=== PATIENT | male | born 1955 | race Caucasian/White ===

== ENCOUNTER 2019-01-21 14:12 | Inpatient (IN) | payer OTHER, MEDICAID ==
[~2019-01-21] VITALS: Ht 167.6 cm; Wt 68.0 kg
--- NOTE | 2019-01-21 14:15 | NUR ---
Placed in room 08 . Placed on monitor technician, blood pressure machine and pulse oximeter. To gown for exam. Side rails up.
[2019-01-21 14:19] VITALS: BP_SYST 100
--- NOTE | 2019-01-21 14:28 | NUR ---
Pt BIB BLS from [place] for fever and dehydration. Temp was 101.5 at facility, was given tylenol and cooling measures. Temp 99.0 upon arrival. SaO2 97% on 2L NC. Bilateral crackles noted. Palmer catheter in place. Pt denies complaints at this time. at bedside. Will continue to monitor.
--- NOTE | 2019-01-21 14:35 | NUR ---
ER Dr. Le at bedside examining patient.
[2019-01-21] MEDS ORDERED: TAMS-11 PO (14:36)
[2019-01-21] MEDS ORDERED: ONDA4TAB5 PO (14:36)
[2019-01-21] MEDS ORDERED: ACET325T53 PO (14:36)
[2019-01-21] MEDS ORDERED: BENZ0.5T43 PO (14:36)
[2019-01-21] MEDS ORDERED: ALBU2.5V7 INH (14:36)
[2019-01-21] MEDS ORDERED: FINA5TAB3 PO (14:36)
[2019-01-21] MEDS ORDERED: LIP80 PO (14:36)
[2019-01-21] MEDS ORDERED: MELA3TAB64 PO (14:36)
[2019-01-21] MEDS ORDERED: CALC1CAP22 PO (14:36)
[2019-01-21] MEDS ORDERED: CARB1TAB10 PO (14:36)
[2019-01-21] MEDS ORDERED: PEDI0.2517 PO (14:36)
[2019-01-21] MEDS ORDERED: POLY17PO4 PO (14:36)
[2019-01-21] MEDS ORDERED: CLOP300T2 PO (14:36)
--- NOTE | 2019-01-21 14:37 | NUR ---
Medication reconciliation completed with information provided by [facility]. Any prior medication reconciliation on file was reviewed and corrected.
[2019-01-21] MEDS ORDERED: NACL 0.9% 1,000 ML IV ONE ×2 (14:45→15:30)
--- NOTE | 2019-01-21 14:48 | NUR ---
# 18 gauge angiocath placed to R AC. Use of asceptic technique. Opsite placed over site. Blood return noted. Blood for lab drawn from site. Flushed with 10 cc of normal saline. No evidence of infiltration noted. Patient tolerated well.
[2019-01-21 15:22] LABS: HEMOGLOBIN 11.7 g/dL (14.0-18.0); MEAN CORPUSCULAR HEMOGLOBIN 32 pg (27-31); MEAN CORPUSCULAR HGB CONC 34 % (32-36); MEAN CORPUSCULAR VOLUME 96 fL (79.0-98.0); PLATELET COUNT (AUTO) 155 K/uL (130-430); RED BLOOD CELL COUNT(AUTO) 3.63 MIL/uL (4.2-6.2); RED CELL DISTRIBUTION WIDTH 13.7 % (9.0-15.0); WHITE BLOOD COUNT (AUTO) 24.2 K/uL (4.8-10.8)
[2019-01-21] MEDS ORDERED: LEVOFLOXACIN 500 MG/D5W 100 ML IV ONE (15:30)
--- NOTE | 2019-01-21 15:30 | NUR ---
# 16 FR Hou catheter with use of sterile technique. Immediate return of 10 cc light pink urine noted. Bedside drainage bag placed below level of bladder. Urine sample collected and sent to lab. Pt tolerated procedure well. Patient arrived with hou in place, changed due to standard of practice prior to admission. Patient unable to toilet self.
[2019-01-21 15:51] LABS: ALBUMIN 2.8 g/dL (3.4-4.8); CALCIUM 8.3 mg/dL (8.4-11.0); CREATININE 0.79 mg/dL (0.55-1.30); POTASSIUM 3.3 mmol/L (3.5-5.1)
[2019-01-21 15:52] LABS: INR 1.1 (0.80-1.20)
[2019-01-21 16:15] LABS: BAND % (MANUAL) 45 % (0-6); BASOPHILS % (MANUAL) 0 % (0-2); EOSINOPHILS % (MANUAL) 0 % (0-7); LYMPHOCYTES % (MANUAL) 12 % (20-46); METAMYELOCYTES % 2 % (0-0); MONOCYTES % (MANUAL) 9 % (0-11)
--- NOTE | 2019-01-21 16:20 | NUR ---
Pt c/o difficulty breathing. Pt assisted to high arshad's position with mild relief. Dr. eL notified. Breathing tx to be ordered.
--- NOTE | 2019-01-21 16:26 | NUR ---
Respiratory at bedside for breathing tx
[2019-01-21] MEDS ORDERED: IPRATROPIUM/ALBUTEROL SULFATE 3 ML AMPUL.NEB (DUONEB) INH ONE ×2 (16:30→20:00)
[2019-01-21 16:52] LABS: CLARITY/URINE HAZY (CLEAR); COLOR,URINE YELLOW (YELLOW); PH,URINE 7.5 (5.0-8.0); PROTEIN URINE 1+ (NEGATIVE)
[2019-01-21 16:53] LABS: BILIRUBIN,URINE NEGATIVE (NEGATIVE); BLOOD, URINE 3+ (NEGATIVE); GLUCOSE,URINE NEGATIVE (NEGATIVE); KETONES,URINE NEGATIVE (NEGATIVE); LEUKOCYTE ESTERASE ,URINE 3+ (NEGATIVE); NITRITE, URINE NEGATIVE (NEGATIVE); UROBILINOGEN,URINE 0.2 (0.2-1.0)
[2019-01-21 17:00] LABS: BACTERIA,URINE MODERATE /HPF (None Seen); RBC,URINE 20-50 /HPF (0-3); WBC,URINE 50-80 /HPF (0-3)
[2019-01-21] MEDS ORDERED: IPRATROPIUM/ALBUTEROL SULFATE 3 ML AMPUL.NEB (DUONEB) ONE (17:26)
--- NOTE | 2019-01-21 17:26 | NUR ---
ADMISSION NOTE Received patient from ER via gurluba, received report from P[facility] OUT. Patient admitted with diagnosis of SEPSIS,UTI,PNEUMONIA. Patient oriented to hospital routine, call light, toileting and safety-patient verbalized understanding.
[2019-01-21] MEDS ORDERED: ALBUTEROL SULFATE 0.083% 2.5 MG/3 ML VIAL.NEB INH PRN (17:30)
[2019-01-21] MEDS ORDERED: ACETAMINOPHEN 325 MG TABLET PO PRN (17:30)
[2019-01-21] MEDS ORDERED: POLYETHYLENE GLYCOL 3350, 17 GM/ POWD.PACK PO PRN (17:30)
[2019-01-21] MEDS ORDERED: ONDANSETRON 4 MG ODT TAB PO PRN (17:30)
--- NOTE | 2019-01-21 17:30 | NUR ---
ADMISSION NOTE Received patient from ER via gurney. Patient admitted with diagnosis of UTI,PNA and Sepsis. Patient is awake, alert, oriented X 2. Patient oriented to hospital room, call light, toileting, pain management and safety-teach back done. and daughter at bedside Personal belongings checked, no belongings present . Call light within reach.
[2019-01-21] MEDS ORDERED: POTASSIUM CHLORIDE 30 MEQ in NS 250 ML IV ONE (17:45)
[2019-01-21 17:52] VITALS: BP_SYST 125
[2019-01-21 18:03] VITALS: BP_SYST 101
--- NOTE | 2019-01-21 18:04 | NUR ---
SEPSIS REASSESSMENT: 2ND LACTIC ACID 1.6, PER REPORT PT GIVEN 2 LI OF NS AND ABX IN ER.
[2019-01-21] MEDS ORDERED: MILK OF MAGNESIA 30 ML UDC PO PRN (18:45)
[2019-01-21] MEDS ORDERED: ONDANSETRON HCL 4 MG/2 ML VIAL IVP PRN (18:45)
[2019-01-21] MEDS: KCL 20 mEq in NS 1000 mL 1,000 ML IV SCH (18:59)
--- NOTE | 2019-01-21 19:26 | NUR ---
Closing Notes Full SBAR report given to RN next shift, patient remain to be alert, awake and verbally responsive. Denies any pain or discomfort at this time. On 02 at 2lpm via [place]. Voddler infusig well. Call light within the reach.
[2019-01-21] MEDS: CARBIDOPA/LEVODOPA 25/100 MG TABLET PO SCH (19:42)
[2019-01-21 20:00] VITALS: BP_SYST 106
--- NOTE | 2019-01-21 20:28 | NUR ---
CONSULTATION PAGED/CALLED Reason for consultation: Sepsis UTI, indwelling hou Was consult called? Yes Person who was notified: Lisa Consulting Physician: Dr. Man Youth Associate Phone #: Ordering Physician: Dr. Grove
[2019-01-21] MEDS: BENZTROPINE MESYLATE 1 MG TABLET PO SCH (21:24)
[2019-01-21] MEDS ORDERED: ZOLPIDEM TARTRATE 5 MG TABLET PO PRN (21:30)
--- NOTE | 2019-01-21 22:42 | NUR ---
CONSULTATION PAGED/CALLED Reason for consultation: metastatic abdominal sarcoma Was consult called? Yes Person who was notified: Lisa Consulting Physician: Dr. Lerma Social Media Designer Phone #: Ordering Physician: Dr. Grove
[2019-01-22] MEDS: CARBIDOPA/LEVODOPA 25/100 MG TABLET PO SCH ×4 (00:35→17:25)
[2019-01-22 00:37] VITALS: BP_SYST 104
[2019-01-22] MEDS: ALBUTEROL SULFATE 0.083% 2.5 MG/3 ML VIAL.NEB INH SCH ×4 (01:00→20:02)
[2019-01-22] MEDS: KCL 20 mEq in NS 1000 mL 1,000 ML IV SCH ×2 (05:36→17:25)
[2019-01-22 06:26] LABS: HEMATOCRIT 32.7 % (36-54); MEAN CORPUSCULAR HEMOGLOBIN 33 pg (27-31); MEAN CORPUSCULAR HGB CONC 34 % (32-36); MEAN CORPUSCULAR VOLUME 97 fL (79.0-98.0); PLATELET COUNT (AUTO) 142 K/uL (130-430); RED BLOOD CELL COUNT(AUTO) 3.37 MIL/uL (4.2-6.2); RED CELL DISTRIBUTION WIDTH 13.9 % (9.0-15.0); WHITE BLOOD COUNT (AUTO) 29.6 K/uL (4.8-10.8)
--- NOTE | 2019-01-22 06:34 | NUR ---
Closing note: Patient is asleep. No distress. 2L NC in place. IV fluids infusing well. All needs met. Safety, fall precautions observed. Hourly rounding performed throughout shift. Will endorse care to dayshift RN.
[2019-01-22 06:50] LABS: ALANINE AMINOTRANSFERASE 10 U/L (12-78); ALBUMIN 2.5 g/dL (3.4-4.8); ASPARTATE AMINOTRANSFERASE 30 U/L (10-37); CALCIUM 8.6 mg/dL (8.4-11.0); CHLORIDE 108 mmol/L (98-107); CREATININE 0.73 mg/dL (0.55-1.30); GLUCOSE 98 mg/dL (70-99); POTASSIUM 3.9 mmol/L (3.5-5.1); SODIUM SERUM 139 mmol/L (136-145); THYROID STIMULATING HORMONE 1.37 uIu/mL (0.34-4.82); TOTAL BILIRUBIN 0.9 mg/dL (0.0-1.0); UREA NITROGEN, BLOOD 6 mg/dL (8-21)
[2019-01-22 06:53] LABS: ANION GAP < 3 (5-15); GFR AFRICAN AMERICAN 140 mL/min (>90)
[2019-01-22 08:00] VITALS: BP_SYST 112
--- NOTE | 2019-01-22 08:00 | NUR ---
Initial Note-Pt awake, AOX1. Pt is receiving breathing treatment, tolerating well saturating at 96%. No acute distress noted. Pt incontinent of bowel, changed and repositioned. IVF infusing well. Palmer patent, urine is yellow and clear. Safety precautions in place, bed alarm on and in lowest position. Call light within reach and encourage pt to use for assistance.
[2019-01-22] MEDS: PANTOPRAZOLE SODIUM 40 MG TAB PO SCH (08:28)
[2019-01-22] MEDS: TAMSULOSIN HCL 0.4 MG CAP PO SCH (08:28)
[2019-01-22] MEDS: FINASTERIDE 5 MG TABLET (PROSCAR) PO SCH (08:28)
[2019-01-22] MEDS: BENZTROPINE MESYLATE 1 MG TABLET PO SCH ×3 (08:29→21:00)
[2019-01-22] MEDS: CLOPIDOGREL BISULFATE 75 MG TABLET PO SCH (08:29)
[2019-01-22 09:39] LABS: BAND % (MANUAL) 2 % (0-6); BASOPHILS % (MANUAL) 0 % (0-2); EOSINOPHILS % (MANUAL) 0 % (0-7); LYMPHOCYTES % (MANUAL) 16 % (20-46); MONOCYTES % (MANUAL) 6 % (0-11)
--- NOTE | 2019-01-22 10:09 | NUR ---
Nutrition Update Abhi Scale 14 noted. Pt admitted for possible sepsis, UTI, pneumonia. Diet: 2 gm Na, mechanical soft + 2 gm Na (2 active, separate diet orders) BMI: 24.2 kg/m2 RD to follow per nutrition care standards.
[2019-01-22] MEDS ORDERED: CEFEPIME 1 GM in D5W 50 ML IV ONE (11:15)
--- NOTE | 2019-01-22 11:22 | NUR ---
Notes-Pt temp 100.8. Applied ice packs and administered PRN tylenol. will continue to monitor.
[2019-01-22 12:10] VITALS: BP_SYST 99
--- NOTE | 2019-01-22 12:30 | NUR ---
Family at bedside and feeding patient.
[2019-01-22] MEDS ORDERED: LEVOFLOXACIN 500 MG/D5W 100 ML IV SCH (15:00)
--- NOTE | 2019-01-22 15:01 | NUR ---
Seen by Speech therapist at bedside.
--- NOTE | 2019-01-22 15:12 | NUR ---
S.T. SWALLOW EVAL SWALLOW EVAL COMPLETED. PT PRESENTS W/ MOD-SEV ORAL AND SEV PHARYNGEAL DYSPHAGIA W/ IMPAIRED AND DELAYED BOLUS TRANSFER, DELAYED SWALLOW, AND SEV COUGHING ON ALL P.O. TRIALS. PT IS AT HIGH RISK FOR ASPIRATION. REC: NPO. VFSS. AWAITING ORDER. NURSE KATIE DEE NOTIFIED. G8996 CM G8997 CM G8998 CM NOMS LEVEL 2
--- NOTE | 2019-01-22 15:24 | NUR ---
S.T. FAMILY CONSULT SPOKE W/ PT'S AT BEDSIDE. EXPLAINED TO HER SWALLOW EVAL RESULTS AND RECOMMENDATIONS/RATIONALE FOR NPO AND VFSS. DECLINED RECOMMENDATIONS. NURSE KATIE DEE NOTIFIED AND WILL LET DR. LYNN KNOW.
--- NOTE | 2019-01-22 15:24 | NUR ---
Notes-Speech pathologist at bedside. refused speech pathologist recommendations. Addendum: 01/22/19 at 1619 by Rebecca uW RN speech therapist.
[2019-01-22] MEDS ORDERED: NS 250 ML IV ONE (16:15)
--- NOTE | 2019-01-22 16:19 | NUR ---
Notes- Pt in bed awake awake, at bedside and talking to Dr. Grove, B/P is 83/55, MD ordered 250 NS bolus. Made aware also that is refusing video swallow.
[2019-01-22 16:50] VITALS: BP_SYST 83
[2019-01-22 17:28] VITALS: BP_SYST 123
--- NOTE | 2019-01-22 17:32 | NUR ---
physical therapy at bedside doing eval. NS bolus done. Blood pressure is in 123/57.
--- NOTE | 2019-01-22 18:15 | NUR ---
Closing Note-Pt asleep in bed. Pt is on 2L nasal cannula, tolerating well. Breathing is even and un-labored. No acute distress noted. IVF infusing well on right ac. Safety precaution in place, bed alarm on, call light within reach and encourage pt to use throughout shift. All needs met throughout shift, will continue to monitor until pt care is endorsed to business education professor nurse.
--- NOTE | 2019-01-22 18:31 | NUR ---
Notes-Dr. Dewey at bedside. No new orders at this time.
--- NOTE | 2019-01-22 19:52 | NUR ---
Initial note: Received report from moreno RN. Patient is laying in bed awake. Alert and oriented to name only. Even and unlabored breathing on 2L NC. IV fluids infusing well to right AC IV site, no infiltration. Palmer catheter draining clear yellow urine to gravity, no clots or sediment noted. Call light is with patient. Bed is locked in lowest position, side rails raised, bed alarm on, room is close to nurses' station. Head of bed is elevated at 45 degrees. Will continue with plan of care.
[2019-01-22 20:00] VITALS: BP_SYST 99
[2019-01-22] MEDS: CEFEPIME 1 GM in D5W 50 ML IV SCH (20:06)
[2019-01-22] MEDS: metroNIDAZOLE 500 mg/NS 100 ML IV SCH (20:50)
--- NOTE | 2019-01-22 22:40 | NUR ---
Rounds: Patient is laying in bed, head of bed elevated. No distress on 2L NC. IV fluids infusing as ordered by MD. Call light with patient. Will continue monitoring.
[2019-01-23 00:43] VITALS: BP_SYST 100
[2019-01-23] MEDS: ALBUTEROL SULFATE 0.083% 2.5 MG/3 ML VIAL.NEB INH SCH ×4 (00:51→19:59)
--- NOTE | 2019-01-23 00:53 | NUR ---
Rounds: Patient is sleeping. No distress noted. Tolerating 2L NC, respirations are even and unlabored. IV site is patent and benign. Call light with patient. Will continue to monitor.
[2019-01-23] MEDS: KCL 20 mEq in NS 1000 mL 1,000 ML IV SCH ×2 (01:49→14:13)
--- NOTE | 2019-01-23 02:11 | NUR ---
Rounds: Patient is resting in bed, no distress. Tolerating 2L NC. IV fluids infusing well. Call light is with patient. Safety, fall precautions in place. Will continue monitoring.
--- NOTE | 2019-01-23 04:51 | NUR ---
Rounds: Patient is laying comfortably in bed asleep, no distress. Even, unlabored breathing on 2L NC. IV fluids infusing as ordered. Dany light with patient. Will continue to monitor.
[2019-01-23] MEDS: CARBIDOPA/LEVODOPA 25/100 MG TABLET PO SCH ×5 (06:00→23:36)
[2019-01-23 06:11] LABS: HEMATOCRIT 32.1 % (36-54); HEMOGLOBIN 10.8 g/dL (14.0-18.0); MEAN CORPUSCULAR HEMOGLOBIN 32 pg (27-31); MEAN CORPUSCULAR HGB CONC 34 % (32-36); MEAN CORPUSCULAR VOLUME 97 fL (79.0-98.0); PLATELET COUNT (AUTO) 138 K/uL (130-430); RED BLOOD CELL COUNT(AUTO) 3.32 MIL/uL (4.2-6.2); RED CELL DISTRIBUTION WIDTH 13.8 % (9.0-15.0); WHITE BLOOD COUNT (AUTO) 23.9 K/uL (4.8-10.8)
[2019-01-23 06:13] LABS: CALCIUM 8.5 mg/dL (8.4-11.0); CHLORIDE 109 mmol/L (98-107); CREATININE 0.72 mg/dL (0.55-1.30); GLUCOSE 117 mg/dL (70-99); POTASSIUM 3.7 mmol/L (3.5-5.1); SODIUM SERUM 141 mmol/L (136-145); UREA NITROGEN, BLOOD 6 mg/dL (8-21)
[2019-01-23 06:18] LABS: ANION GAP < 3 (5-15); GFR AFRICAN AMERICAN 142 mL/min (>90)
--- NOTE | 2019-01-23 06:52 | NUR ---
Closing note: Patient is resting in bed, tolerating 2L NC, showing no acute distress. IV fluids infusing well to right AC IV site. All needs met. Safety and fall precautions observed. Hourly rounding performed throughout shift. Will endorse care to dayshift RN.
[2019-01-23 07:33] LABS: BAND % (MANUAL) 8 % (0-6); BASOPHILS % (MANUAL) 0 % (0-2); EOSINOPHILS % (MANUAL) 0 % (0-7); LYMPHOCYTES % (MANUAL) 7 % (20-46); MONOCYTES % (MANUAL) 5 % (0-11)
--- NOTE | 2019-01-23 07:50 | NUR ---
AM ASSESSMENT. PT ALERT, FREQUENT COUGHING HEARD, TURNED PT TO SEMI SITTING POSITION, ON O2 VIA NASAL CANNULA, VITAL SIGNS STABLE, IVF INFUSING NS WITH 20 MEQ KCL AT 100 ML PER HR, PRINCE CATHETER DRAINING GOOD OUTPUT.
[2019-01-23 08:00] VITALS: BP_SYST 112
[2019-01-23] MEDS: FINASTERIDE 5 MG TABLET (PROSCAR) PO SCH (09:00)
[2019-01-23] MEDS: TAMSULOSIN HCL 0.4 MG CAP PO SCH (09:00)
[2019-01-23] MEDS: BENZTROPINE MESYLATE 1 MG TABLET PO SCH ×3 (09:00→21:00)
[2019-01-23] MEDS: PANTOPRAZOLE SODIUM 40 MG TAB PO SCH (09:00)
[2019-01-23] MEDS: CLOPIDOGREL BISULFATE 75 MG TABLET PO SCH (09:00)
[2019-01-23] MEDS: CEFEPIME 1 GM in D5W 50 ML IV SCH ×2 (09:01→20:48)
[2019-01-23] MEDS: metroNIDAZOLE 500 mg/NS 100 ML IV SCH ×2 (10:07→21:46)
[2019-01-23 12:00] VITALS: BP_SYST 119
--- NOTE | 2019-01-23 14:18 | NUR ---
Dc Planning: s/w patient and his spouse/Nikki at bedside for dcp to snf vs. home with HH . They are agreeable either way. The patient stays at home with Nikki prior going to [facility] in November, then the pat was d/c to [facility] for about 6 weeks. They would like a new rehab at [facility] where is closed to family home or going back to [facility] if unable to transfer to [facility]. >> CM updated Jodi at [facility] about family snf request to #1 [facility] and #2 [facility]. Once there is an accepting snf, or discharging pt on weekend, place call [facility], off hour cm /UR dept # [phone] opt 1 for snf and ambulance auth.
--- NOTE | 2019-01-23 15:06 | NUR ---
CLIFTON, SPEECH THERAPIST WAS INFORMED THAT PT'S FAMILY WANTS A VIDEO SWALLOWING EVAL . CLIFTON ASKED ME TO TRANSFER CALL TO RADIOLOGY.
--- NOTE | 2019-01-23 15:34 | NUR ---
Dietitian Recommendations * Consider advance diet if/when medically appropriate * Consider ST VFSS results and recommendation * Consider ONS if/when medically appropriate LP, RD Please refer to Nutrition Assessment for details. Addendum: 01/23/19 at [address] Amended: Links added.
--- NOTE | 2019-01-23 15:57 | NUR ---
Apurva G[employer] STARTER AND RANGER WAS NOTIFIED TODAY AT 1503 RE: VFSS ORDER. CALLED RADIOLOGY - RADIOLOGIST IS GONE FOR THE DAY. VFSS CAN BE PERFORMED ON SATURDAY (LABOR DAY). [facility] [employer] [employer]ER WILL SCHEDULE ON SATURDAY MORNING RE: EXACT TIME. NURSES CHECO AND DR. LYNN UPDATED WITH CURRENT STATUS.
--- NOTE | 2019-01-23 16:00 | NUR ---
FAMILY. PT'S AT BEDSIDE. INFORMED THAT VIDEO SWALLOW WILL BE DONE ON SATURDAY. SHE ASKED IF HE CAN HAVE SOMETHING TO EAT FOR NOW, TO TRY SOME ENSURE, STATED "I FED HIM YESTERDAY". EDUCATED ON RISK FOR ASPIRATION.
[2019-01-23 17:07] VITALS: BP_SYST 115
--- NOTE | 2019-01-23 18:19 | NUR ---
PHYSICAL THERAPY CO-SIGN The Physical Therapy Progress Notes documented by Multiple Spindle Router Operator have been reviewed. Reviewed/Co-Signed by: Cheyenne Bynum PT Documentation Done by:MARIELOS [place] PTA 01/23/19 Hgb=10.8 Addendum: 01/23/19 at 1820 by Cheyenne Bynum PT Amended: Links added.
[2019-01-23 20:10] VITALS: BP_SYST 113
--- NOTE | 2019-01-23 20:10 | NUR ---
INITIAL NOTES: PATIENT IN BED AWAKE ,ORIENTED X3. FAMILY AT BEDSIDE. ON O2 2 LITERS PER N/C. IVF INFUSING AT 100ML/HR. DENIES PAIN NOR SOB NOR CHEST PAIN. HAVING MOIST COUGH OCCASIONALLY, PRINCE DRAINING CLEAR MANOLO URINE. SINUS RHYTHM ON TELEMONITOR. WILL MONITOR CLOSELY.
--- NOTE | 2019-01-23 21:00 | NUR ---
NPO .NO MEDS GIVEN TO PREVENT ASPIRATION.
--- NOTE | 2019-01-23 23:20 | NUR ---
RESTING WELL IN BED .NO ACUTE DISTRESS. CALL LIGHT WITHIN REACH. BED IN LOW POSITION. PRINCE DRAING WELL.
--- NOTE | 2019-01-24 01:08 | NUR ---
MOANING. NO ANSWER WHEN TALKED TO HIM. NO DISTRESS.
[2019-01-24 01:18] VITALS: BP_SYST 105
[2019-01-24] MEDS: KCL 20 mEq in NS 1000 mL 1,000 ML IV SCH ×2 (01:24→15:10)
[2019-01-24] MEDS: ALBUTEROL SULFATE 0.083% 2.5 MG/3 ML VIAL.NEB INH SCH ×4 (01:50→19:25)
--- NOTE | 2019-01-24 03:00 | NUR ---
BREATHING PATTERN REGULAR. NO DISTRESS.
--- NOTE | 2019-01-24 05:10 | NUR ---
HAS SMALL SOFT STOOL. PHIL CARE DONE. NO DISTRESS.
[2019-01-24 06:43] LABS: CALCIUM 8.6 mg/dL (8.4-11.0); CHLORIDE 104 mmol/L (98-107); CREATININE 0.66 mg/dL (0.55-1.30); GLUCOSE 100 mg/dL (70-99); POTASSIUM 3.8 mmol/L (3.5-5.1); SODIUM SERUM 138 mmol/L (136-145); UREA NITROGEN, BLOOD 6 mg/dL (8-21)
[2019-01-24 07:10] LABS: BASOPHILS % (AUTO) 0.3 % (0.0-2.0); EOSINOPHILS % (AUTO) 0.1 % (0.0-4.0); HEMATOCRIT 34.1 % (36-54); HEMOGLOBIN 11.5 g/dL (14.0-18.0); LYMPHOCYTES # (AUTO) 1.4 K/uL (1.0-5.5); LYMPHOCYTES % (AUTO) 11.8 % (20.5-51.5); MEAN CORPUSCULAR HEMOGLOBIN 33 pg (27-31); MEAN CORPUSCULAR HGB CONC 34 % (32-36); MEAN CORPUSCULAR VOLUME 98 fL (79.0-98.0); MONOCYTES # (AUTO) 0.9 K/uL (0.0-1.0); MONOCYTES % (AUTO) 7.3 % (1.7-9.3); NEUTROPHILS # (AUTO) 9.5 K/uL (1.8-7.7); NEUTROPHILS % (AUTO) 80.5 % (40.0-70.0); PLATELET COUNT (AUTO) 141 K/uL (130-430); RED BLOOD CELL COUNT(AUTO) 3.49 MIL/uL (4.2-6.2); WHITE BLOOD COUNT (AUTO) 11.8 K/uL (4.8-10.8)
[2019-01-24 07:22] LABS: ANION GAP < 3 (5-15); GFR AFRICAN AMERICAN 157 mL/min (>90)
[2019-01-24 08:00] VITALS: BP_SYST 110
[2019-01-24] MEDS: PANTOPRAZOLE SODIUM 40 MG TAB PO SCH (09:00)
[2019-01-24] MEDS: CLOPIDOGREL BISULFATE 75 MG TABLET PO SCH ×2 (09:00→10:09)
[2019-01-24] MEDS: TAMSULOSIN HCL 0.4 MG CAP PO SCH ×2 (09:00→10:09)
[2019-01-24] MEDS: BENZTROPINE MESYLATE 1 MG TABLET PO SCH ×4 (09:00→21:00)
[2019-01-24] MEDS: CEFEPIME 1 GM in D5W 50 ML IV SCH ×2 (10:08→20:54)
[2019-01-24] MEDS: metroNIDAZOLE 500 mg/NS 100 ML IV SCH ×2 (10:08→21:36)
[2019-01-24] MEDS: FINASTERIDE 5 MG TABLET (PROSCAR) PO SCH (10:09)
[2019-01-24] MEDS: CARBIDOPA/LEVODOPA 25/100 MG TABLET PO SCH ×4 (12:00→23:37)
[2019-01-24 12:32] VITALS: BP_SYST 120
[2019-01-24 16:25] VITALS: BP_SYST 105
[2019-01-24 17:49] VITALS: BP_SYST 105
[2019-01-24] MEDS: KCL 20 mEq in D5NS 1000 mL 1,000 ML IV SCH (18:38)
--- NOTE | 2019-01-24 19:45 | NUR ---
initial notes: pt is awake,alert, oriented x 2. in bed. watching tv. not distress, no sob. no sign of pain stable. pt has ongoing ivf to his right ac gauge 18 infusing well with out sign of infiltration. hou catheter draining to clear yellow urine. no skin breakdown, incontinent of bm. discuss to pt plan of care, medication, reorient to room and call light. pt show sign of understanding. needs attended call light in reach. low bed position. side rails up. will continue to monitor.
--- NOTE | 2019-01-24 20:00 | NUR ---
initial notes: pt is awake,alert, oriented x 4. in bed. not distress, no sob. no complain of pain pt has 18 gauge iv lock to right forearm-patent and intact with ongoing ivf infusing well. pt has multiple wounds. pt has pitting edema to right foot. hou catheter draining to clear yellow urine. discuss to pt plan of care, medication, reorient to room and call light, pt verbalized understanding. needs attended call light in reach. low bed position. side rails up. will follow-up. Addendum: 01/25/19 at 0037 by Jorge Quick RN DISREGARD. WRONG ENTRY
[2019-01-24 20:43] VITALS: BP_SYST 109
--- NOTE | 2019-01-24 22:00 | NUR ---
pt is still awake, watching tv. no sob. not distress. no sign of pain. stable. will continue to monitor.
--- NOTE | 2019-01-25 | NUR ---
sleeping. no distress. no pain. stable. reposition for comfort. side rails up x3 . low bed position. will monitor.
[2019-01-25] MEDS: ALBUTEROL SULFATE 0.083% 2.5 MG/3 ML VIAL.NEB INH SCH ×4 (00:25→19:52)
[2019-01-25 00:52] VITALS: BP_SYST 101
--- NOTE | 2019-01-25 01:57 | NUR ---
sleeping, no sob. no distress. stable. ivf infusing well. will monitor.
[2019-01-25] MEDS: KCL 20 mEq in D5NS 1000 mL 1,000 ML IV SCH ×3 (03:07→22:59)
--- NOTE | 2019-01-25 04:00 | NUR ---
pt is wakes up. and ask for socks. stable. no pain. needs attended. safety. call light in reach. will follow-up.
[2019-01-25] MEDS: CARBIDOPA/LEVODOPA 25/100 MG TABLET PO SCH ×3 (05:52→16:57)
--- NOTE | 2019-01-25 06:01 | NUR ---
sleeping, comfortable. sob. no distress. stable. ivf infusing well.needs attended. will monitor.
--- NOTE | 2019-01-25 07:14 | NUR ---
closing: pt is awake, alert. watching tv. no pain. not distress. stable. ivf infusing well. hou drain by gravity. needs attended the whole shift. call light in reach. bed side report given to am rn.
[2019-01-25 07:59] VITALS: BP_SYST 108
[2019-01-25] MEDS: TAMSULOSIN HCL 0.4 MG CAP PO SCH (09:00)
[2019-01-25] MEDS: FINASTERIDE 5 MG TABLET (PROSCAR) PO SCH (09:00)
[2019-01-25] MEDS: CLOPIDOGREL BISULFATE 75 MG TABLET PO SCH (09:00)
[2019-01-25] MEDS: PANTOPRAZOLE SODIUM 40 MG TAB PO SCH (09:00)
[2019-01-25] MEDS: BENZTROPINE MESYLATE 1 MG TABLET PO SCH ×3 (09:00→21:00)
[2019-01-25] MEDS: CEFEPIME 1 GM in D5W 50 ML IV SCH ×2 (09:02→21:33)
[2019-01-25] MEDS: metroNIDAZOLE 500 mg/NS 100 ML IV SCH ×2 (09:03→21:34)
--- NOTE | 2019-01-25 12:33 | NUR ---
Nutrition F/U RD reviewed pt's current EMR including diet Hx, physician notes, nursing notes, pertinent labs/meds/procedures, care trends and care activity. Current Diet Order: NPO x 2 days Subjective information: Pt seen in bed at time of RD visit earlier today. IV infusing. Per RN, pt is still awaiting VFSS. Per ST notes (01/23), VFSS will be done 01/26/19. Current PO intake: N/A on NPO Estimated Energy Expenditure (kcals/day) 0036-6137 kcal/day (30-35 kcal/kg CBW for sepsis, CA) Estimated Protein Required (g/day) 102-136 gm/day (1.5-2 gm/kg CBw for sepsis, CA) Estimated Fluid Required (l/day) 2-2.4 L/day (1 ml/kcal/day for maintenance) Problem/Etiology/Signs/Symptoms Increased nutritional needs related to metabolic demands as evidenced by estimated nutritional requirements for sepsis and CA, as well as elevated WBC lab value. *ongoing Inadequate PO intake r/t pending medical procedure AEB current NPO status and need for swallow re-evaluation. *new Expected Outcomes/Goals - Monitor advancement of diet, appetite, and PO intakes w/ goal of pt meeting at least 50% of estimated nutritional needs, labs trending WNL, normal GI function, and skin integrity/wt maintenance Dietitian Recommendations * Consider advance diet if/when medically appropriate within 24 hrs. * Consider ST VFSS results and recommendation * Consider an alternate route of nutrition support if PO intake is not warranted in 24 to 48 hrs. Follow Up High Risk: F/U in 2-3days
--- NOTE | 2019-01-25 12:40 | NUR ---
Dietitian Recommendations * Consider advance diet if/when medically appropriate within 24 hrs. * Consider ST VFSS results and recommendation * Consider an alternate route of nutrition support if PO intake is not warranted in 24 to 48 hrs. Please see nutrition F/U note for details. TAYLOR, RD
[2019-01-25 16:00] VITALS: BP_SYST 102
[2019-01-25 19:00] VITALS: BP_SYST 106
--- NOTE | 2019-01-25 19:15 | NUR ---
change of shift.pt.presents quiescent affect;calm.viewing tv programming.pt.presents mute speech.pt.presents.lt.sided weakness. general status stable.respiratory status stable@room air.iv access;intact;patent:iv fluids infusing.call light/telephone placed w/in the reach of the pt.rt.side;hand. Addendum: 01/26/19 at 0155 by Damián Piper RN pt.presents npo;diet status.video-swallow study in am;01/26/19. Addendum: 01/26/19 at 0200 by Damián Piper RN hou catheter present.
[2019-01-25 20:00] VITALS: BP_SYST 106
--- NOTE | 2019-01-25 20:00 | NUR ---
pt.assessed.v/s assessed;values w/in normal limits.per flacc;pain mgx;pt absent facial grimaces/body posturing.iv access ;intact;patent;iv fluids;infusing.pt.assessed for cleanliness.pt.repositioned.general status stable.respiratory status stable@room air ;02%=96%.call light/telephone placed w/in reach of the pt.;rt.side;hand. Addendum: 01/26/19 at 0205 by Damián Piper RN hou catheter assessed;intact;patent;urine content present.
--- NOTE | 2019-01-25 21:00 | NUR ---
2100pmedications;administered.maxipime/flagyl;abx;ivpb.pt.preset npo status;video-swallow in am;01/26/19.
--- NOTE | 2019-01-25 22:00 | NUR ---
pt.assessed.pt.presents quiescent affect;calm,viewing tv programming.per flacc;pain mgx;pt.absent facial grimaces,body posturing.iv access assessed;intact;patent;iv fluids infusing.hou catheter assessed;intact;patent;urine content present.pt.assessed for cleanliness.pt.repositioned.call light/telephone placed w/in the reach of the pt;rt.side;hand.
[2019-01-25 23:33] VITALS: BP_SYST 96
--- NOTE | 2019-01-26 | NUR ---
pt.assessed.v/s assessed.values w/in normal limits.per flacc;pain mgx;pt absent facial grimaces/body posturing.pt.assessed for cleanliness.pt.repositioned.iv acces ;intact;patent;iv fluids infusing.general status stable.respiratory status stable:o2-say%=96%. sarita light/telephone placed w/in the reach of the pt.rt.side;hand. Addendum: 01/26/19 at 0204 by Damián Piper RN hou catheter assessed;intact;patent;urine content present.
[2019-01-26] MEDS: ALBUTEROL SULFATE 0.083% 2.5 MG/3 ML VIAL.NEB INH SCH ×4 (00:51→19:27)
--- NOTE | 2019-01-26 02:00 | NUR ---
pt.assessed.pt.presents quiescent affect;calm,somnolent.iv access;intact;patent;iv fluids infusing.hou catheter intact;patent;urine content present.pt.assessed for cleanliness.pt.repositioned.general status stable.respiratory status stable.sarita light/telephone placed w/in the reach of the pt.rt.side;hand.
--- NOTE | 2019-01-26 04:00 | NUR ---
pt.assessed.pt.presents quiescent affect;calm,somnolent.per flacc;pain mgx;pt.absent facial grimaces,body posturing.pt.assessed for cleanliness.pt.repositioned general status stale.respiratory status stable;unlabored.call light/telephone placed w/in the reach of the pt.rt.side;hand.
[2019-01-26] MEDS: CARBIDOPA/LEVODOPA 25/100 MG TABLET PO SCH ×4 (05:01→17:51)
[2019-01-26] MEDS: KCL 20 mEq in D5NS 1000 mL 1,000 ML IV SCH ×3 (05:02→21:42)
--- NOTE | 2019-01-26 06:21 | NUR ---
pt.assessed.pt.presents quiescent affect;clam,somnolent.i have assessed the iv access;intact;patent iv fluids infusing. i have assessed the hou catheter;intact;patent;urine content present.pt.assessed for cleanliness.pt.repositioned. general status stable respiratory status stable;unlabored.call light/telephone placed w/in reach of the pt.rt.side;hand.
--- NOTE | 2019-01-26 07:30 | NUR ---
Opening Notes Patient received lying comfortably in his bed with respiration even and unlabored. Remain to be alert, awake and limited verbal response. No moaning or grimacing noted. IVF remain to be intact and running well. Patient continued on NPO. Call light within the reach. Will continue to monitor.
[2019-01-26] MEDS: CEFEPIME 1 GM in D5W 50 ML IV SCH ×2 (08:18→21:41)
--- NOTE | 2019-01-26 08:20 | NUR ---
Spoke with Speech Therapist Angi, regarding orders for video swallow today, per her request changed the order to be under Radiology as well, procedure to be at 0930 today 01/26/19.
[2019-01-26 08:30] VITALS: BP_SYST 115
[2019-01-26] MEDS: BENZTROPINE MESYLATE 1 MG TABLET PO SCH ×3 (09:00→21:42)
[2019-01-26] MEDS: FINASTERIDE 5 MG TABLET (PROSCAR) PO SCH (09:00)
[2019-01-26] MEDS: PANTOPRAZOLE SODIUM 40 MG TAB PO SCH (09:00)
[2019-01-26] MEDS: TAMSULOSIN HCL 0.4 MG CAP PO SCH (09:00)
[2019-01-26] MEDS: CLOPIDOGREL BISULFATE 75 MG TABLET PO SCH (09:00)
[2019-01-26] MEDS ORDERED: BARIUM SULFATE 135 ML SUSP.RECON (E-Z-HD) PO ONE (09:33)
--- NOTE | 2019-01-26 09:33 | NUR ---
Hygiene care patient calling at this time, had a BM, cleaned and repositioned patient, he tolerated well, no other needs at this time, continuing to monitor, bed in lowest position, three side rails up, bed alarm on, call light within reach, fall and aspiration precautions in place.
--- NOTE | 2019-01-26 10:09 | NUR ---
Video Swallow at this time, patient is not in any distress, continuing to monitor.
[2019-01-26] MEDS: metroNIDAZOLE 500 mg/NS 100 ML IV SCH ×2 (10:22→21:42)
--- NOTE | 2019-01-26 11:24 | NUR ---
S.T. VIDEO SWALLOW STUDY VFSS COMPLETED. PT PRESENTS W/ MOD-SEV ORAL AND MOD PHARYNGEAL DYSPHAGIA CHARACTERIZED BY DELAYED INITIATION AND PROPULSION OF BOLUS TRANSFER, SEV INCREASED ORAL TRANSIT TIME, POSTERIOR BOLUS LEAKAGE, AND DELAYED SWALLOW. ML PENETRATION NOTED ON CONTINUOUS CUP SIPS OF THIN LIQUIDS. NO ASPIRATION. REC: PUREE DIET. THIN LIQUIDS OK. SLOW RATE OF FEEDING. NO STRAW. NURSES IMAN AND KWASI NOTIFIED. G8996 CK G8997 CK G8998 CK NOMS LEVEL 4
--- NOTE | 2019-01-26 11:55 | NUR ---
Spoke with SNF Spoke with Muriel from [facility], she was calling for updates, updates provided, Muriel stated to call back if patient is being discharged today, will follow up as needed.
--- NOTE | 2019-01-26 12:05 | NUR ---
Paged Dr. Grove Paged Dr. Grove to notify regarding video swallow test result. Awaiting for call back.
--- NOTE | 2019-01-26 12:06 | NUR ---
PAGED DR. LYNN PER NURSE SPOKE TO NATALIYA DIALED [phone]
--- NOTE | 2019-01-26 12:20 | NUR ---
Dr. Grove called back Received a call from Dr. Grove notified regarding video swallow test and ST recommended diet, with new order to follow ST's recommendation, noted and carried out.
[2019-01-26 13:51] VITALS: BP_SYST 103
--- NOTE | 2019-01-26 14:40 | NUR ---
RN ROUND Patient resting well in bed, no moaning or grimacing noted. Respiration even and unlabored. No SOB, no acute distress, no congestion at this time. at bedside. IVF remain to be patent and infusing well. Palmer catheter remain to be intact and draining dark yellow urine to bag via gravity. Call light within easy reach. Will continue to monitor.
--- NOTE | 2019-01-26 16:40 | NUR ---
RN ROUND Patient resting well in bed, no sob, no acute distress, no congestion. at bedside. No moaning or grimacing noted. Call light within the reach. Will continue to monitor.
[2019-01-26 17:20] VITALS: BP_SYST 98
--- NOTE | 2019-01-26 18:33 | NUR ---
Closing Notes Patient currently lying comfortably in his bed with respiration even and unlabored. Remain to be alert, awake and verbally responsive. and daughter at bedside. Call light within the reach. Will continue to monitor.
--- NOTE | 2019-01-26 18:48 | NUR ---
Called after hours pharmacy regarding pending Vitamin A & D ointment order, Pharmacist stated that the order is not an issue but it is not being accepted by [facility] on their end. Pharmacist recommended to try alternate methods to relieve patient's back ache for now and/or to call the on-call pharmacist for the actual ointment or to wait until tomorrow. Spoke with Digital Technician to check if medication would be available in night locker, it is not available at this time. Will endorse to [facility] shift nurse.
[2019-01-26 19:00] VITALS: BP_SYST 104
--- NOTE | 2019-01-26 19:15 | NUR ---
change of shift.pt.presents quiescent affect;calm,viewing tv programming.diet status advanced;puree.post video swallow. iv access; intact;patent;iv fluids infusing.hou cath assessed intact;patent;urine content present.call light/telephone w/in reach of the pt;rt.side;hand.
[2019-01-26 20:00] VITALS: BP_SYST 104
--- NOTE | 2019-01-26 20:00 | NUR ---
pt.assessed.v/s assessed;values normal limits;b/p values slight low director of brand marketing/pt.asymptomatic.pt.presents lt.sided weakness.pt.presents speech;mute.per day nsg.diet ordered puree;post video swallow;study;01/26/19.pt.presents iv access;intact;corona iv fluids infusing.pt.presents hou cath;intact;patent;urine content present.pt.assessed for cleanliness pt.repositioned.call light/telephone placed w/in reach of the pt.rt.side;hand.
--- NOTE | 2019-01-26 21:00 | NUR ---
2100p medications administered.maxipime/flagyl;abx;ivpb.i have administered cogentin;po;i have crushed the medication:mixture;pudding.pt.capable to consume pudding;slowly.absent chocking. Addendum: 01/27/19 at 0055 by Damián Piper RN i have changed the iv fluids bag.
--- NOTE | 2019-01-26 22:00 | NUR ---
pt.assessed.pt.presents quiescent affect;calm,somnolent.pt.assessed for cleanliness.pt.repositioned.iv access;intact;patent. iv fluids infusing.hou cath intact;patent;urine content present.general status stable.respiratory status stable.call light/ telephone placed w/in the reach of the pt.rt.side;hand.
--- NOTE | 2019-01-27 | NUR ---
pt.assessed.v/s assessed;values w/in normal limits.pt.assessed for cleanliness.pt.repositioned.iv access;intact;patent;iv fluids infusing. hou cath assessed intact;patent.urine content present.i have administered sinemet:po midnight dose.general status stable. respiratory statu stable.unlabored.call light/telephone placed w/in the reach of the pt.
[2019-01-27] MEDS: CARBIDOPA/LEVODOPA 25/100 MG TABLET PO SCH ×4 (00:46→17:13)
[2019-01-27] MEDS: ALBUTEROL SULFATE 0.083% 2.5 MG/3 ML VIAL.NEB INH SCH ×4 (01:11→19:45)
--- NOTE | 2019-01-27 02:00 | NUR ---
pt assessed.pt.presents quiescent affect;calm,somnolent.pt.assessed for cleanliness.pt.repositioned.iv access intact;patent.hou cath intact;patent;urine content present.general status stable.respiratory statu stable;unlabored.call light/telephone placed w/in reach of the pt.rt.side;hand.
[2019-01-27 02:41] VITALS: BP_SYST 95
--- NOTE | 2019-01-27 04:00 | NUR ---
pt,assessed.pt.presents quiescent affect;calm,somnolent.pt.assessed for cleanliness.pt.repositioned.iv access intact;patent.iv fluids infusing. hou catheter intact;patent;urine content present.general status stable.respiratory status stable./call light/telephone placed w/in reach of the pt.rt.side:hand.
--- NOTE | 2019-01-27 06:17 | NUR ---
pt.assessed.pt.presents quiescent affect;calm.i have administered,sinemet;0600a dose.mixture;pudding.pt.capable to swallow medication absent chocking.pt.assessed for cleanliness.pt.repositioned.iv access intact;patent.iv flud9s infusing.hou catheter intact;patent.urine content present.call light/telephone placed w/in the of the pt.rt.side;hand.
[2019-01-27 07:20] VITALS: BP_SYST 95
--- NOTE | 2019-01-27 08:00 | NUR ---
initial notes rec patient awake but non verbally responsive. with ivf infusing well on the r ac. no infiltration noted. on breathing tx when rounds made. resp easy and unlabored bed to the lowest position and side rails up and locked. call light within reached and patient close to the nurses station. will continue to monitor patient.
[2019-01-27] MEDS: CEFEPIME 1 GM in D5W 50 ML IV SCH ×2 (08:52→21:14)
[2019-01-27] MEDS: TAMSULOSIN HCL 0.4 MG CAP PO SCH (08:53)
[2019-01-27] MEDS: FINASTERIDE 5 MG TABLET (PROSCAR) PO SCH (08:53)
[2019-01-27] MEDS: BENZTROPINE MESYLATE 1 MG TABLET PO SCH ×3 (08:53→21:22)
[2019-01-27] MEDS: CLOPIDOGREL BISULFATE 75 MG TABLET PO SCH (08:53)
[2019-01-27] MEDS: PANTOPRAZOLE SODIUM 40 MG TAB PO SCH (08:53)
[2019-01-27] MEDS: metroNIDAZOLE 500 mg/NS 100 ML IV SCH ×2 (08:54→21:14)
[2019-01-27] MEDS: KCL 20 mEq in D5NS 1000 mL 1,000 ML IV SCH (08:56)
[2019-01-27 09:05] VITALS: BP_SYST 105
--- NOTE | 2019-01-27 10:00 | NUR ---
rounds due meds given and mayito well. pt close to the nurses station. denies pain. no sob noted.
--- NOTE | 2019-01-27 12:00 | NUR ---
rounds resting comfortably , no sob noted. call light within reached.
[2019-01-27 12:17] VITALS: BP_SYST 99
[2019-01-27] MEDS: VITS A AND D/WHITE PET/LANOLIN 113.4 GM TUBE TP SCH ×2 (13:19→21:23)
--- NOTE | 2019-01-27 13:25 | NUR ---
Discharge Planning: DCP faxed to [facility] (f [phone] p [phone]) DCP to follow up
--- NOTE | 2019-01-27 14:00 | NUR ---
rounds pt had a bm. keep patient dry and clean.
--- NOTE | 2019-01-27 16:00 | NUR ---
rounds sleeps at intervals. denies pain. no sob noted.
[2019-01-27 17:05] VITALS: BP_SYST 101
--- NOTE | 2019-01-27 18:46 | NUR ---
[facility] CALLED [facility] PER [facility]QEST . THEY WERE ASKING IF THERE WAS A BED AVAIL. WHEN I CALLED I WAS INFORMEND THAT PT HAS A BED WAITING FOR HIM IN ROOM [address] . [facility] [phone] SPOKE WITH JOHN AND FOOD SANITARIAN IS SET FOR 2100 RN NOTIFIED
--- NOTE | 2019-01-27 19:30 | NUR ---
Initial Notes Received handoff report from offgoing nurse at the bedside. Patient is AAOx1, resting comfortably in bed. No SOB, no acute distress, no complaints of pain at this time. Bed is locked, in the lowest position, 2x side rails up, bed alarm is on. Call light is within reach. Encouraged patient to call for assistance. Will continue with plan of care.
--- NOTE | 2019-01-27 19:43 | NUR ---
PAGED PAGED DOCTOR LYNN FOR ORDERS
--- NOTE | 2019-01-27 19:49 | NUR ---
DR LYNN CALLED THE FACILITY BACK. INFORMED DR LYNN THAT THE PATIENT CURRENTLY HAS A BLOOD PRESSURE OF 87/58, HR 88, AND THAT THE PATIENT IS PENDING AMBULANCE MANAGER LEASING FOR DISCHARGE. DR LYNN STATED TO HOLD THE DISCHARGE UNTIL FURTHER NOTICE, GIVE THE PATIENT 150ML NS BOLUS, AND DR LYNN STATED THAT SHE WILL CALL BACK LATER FOR AN UPDATE. CHARGE NURSE MADE AWARE.
--- NOTE | 2019-01-27 19:52 | NUR ---
[facility] [phone] SPOKE WITH RONDA
[2019-01-27 20:00] VITALS: BP_SYST 87
[2019-01-27] MEDS ORDERED: NS 150 ML IV SCH (20:30)
--- NOTE | 2019-01-27 20:50 | NUR ---
150ML NS IV Bolus completely infused. No significant changes noted in blood pressure at this time. Charge nurse aware.
--- NOTE | 2019-01-27 21:08 | NUR ---
DR LYNN CALLED FOR A FOLLOW UP. INFORMED HER PATIENT'S CURRENT BLOOD PRESSURE IS NOW 87/[address] LYNN STATED HOLD DISCHARGE DUE TO HYPOTENSION, CHANGE PATIENT TO TELEMETRY, AND CBC BMP IN THE MORNING. CHARGE NURSE AWARE.
--- NOTE | 2019-01-27 22:00 | NUR ---
IV RE-INSERTION: Complaining of pain to IV site on right forearm. Restarted on left forearm #[id number]. Successful after 1 attempt. Saline locked. Will observe for any signs of infiltration. Addendum: 01/28/19 at 0006 by Corinne Rose RN Continuation of notes Removed right forearm IV, noted that catheter is intact.
[2019-01-28] VITALS (7 sets, daily range): BP systolic 80–107
--- NOTE | 2019-01-28 00:06 | NUR ---
Rounds Patient is resting comfortably in bed, eyes closed. Breathing even and unlabored with visible chest rise and fall noted. No SOB, no acute distress, no signs of pain or facial grimacing. Bed is locked, in the lowest position, bed alarm is on. Call light is within reach.
[2019-01-28] MEDS: ALBUTEROL SULFATE 0.083% 2.5 MG/3 ML VIAL.NEB INH SCH ×4 (00:34→20:19)
[2019-01-28] MEDS: CARBIDOPA/LEVODOPA 25/100 MG TABLET PO SCH ×4 (00:55→18:25)
--- NOTE | 2019-01-28 02:20 | NUR ---
Patient resting comfortably in bed, eyes closed. Breathing even and unlabored with visible chest rise and fall noted. No SOB, no acute distress, no signs of pain or facial grimacing noted. Bed is locked, lowest position, 2x side rails up, bed alarm is on. Call light within reach.
--- NOTE | 2019-01-28 03:59 | NUR ---
Patient resting comfortably in bed, eyes closed. No SOB, no acute distress, no signs of pain or facial grimacing noted. Visible chest rise and fall noted. Bed is locked, lowest position, 2x side rails up, bed alarm is on. Call light is within reach.
[2019-01-28 06:13] LABS: BASOPHILS % (AUTO) 0.6 % (0.0-2.0); EOSINOPHILS % (AUTO) 0.1 % (0.0-4.0); HEMATOCRIT 36.2 % (36-54); HEMOGLOBIN 12.3 g/dL (14.0-18.0); LYMPHOCYTES # (AUTO) 1.9 K/uL (1.0-5.5); LYMPHOCYTES % (AUTO) 27.8 % (20.5-51.5); MEAN CORPUSCULAR HEMOGLOBIN 33 pg (27-31); MEAN CORPUSCULAR HGB CONC 34 % (32-36); MEAN CORPUSCULAR VOLUME 97 fL (79.0-98.0); MONOCYTES # (AUTO) 0.6 K/uL (0.0-1.0); MONOCYTES % (AUTO) 8.3 % (1.7-9.3); NEUTROPHILS # (AUTO) 4.3 K/uL (1.8-7.7); NEUTROPHILS % (AUTO) 63.2 % (40.0-70.0); PLATELET COUNT (AUTO) 198 K/uL (130-430); RED BLOOD CELL COUNT(AUTO) 3.72 MIL/uL (4.2-6.2); RED CELL DISTRIBUTION WIDTH 14.2 % (9.0-15.0); WHITE BLOOD COUNT (AUTO) 6.8 K/uL (4.8-10.8)
[2019-01-28 07:07] LABS: CALCIUM 8.7 mg/dL (8.4-11.0); CREATININE 0.62 mg/dL (0.55-1.30); POTASSIUM 3.9 mmol/L (3.5-5.1)
--- NOTE | 2019-01-28 07:18 | NUR ---
CLOSING NOTES PATIENT IS RESTING COMFORTABLY IN BED, AAOX2. NO SOB, NO ACUTE DISTRESS, NO COMPLAINTS OF PAIN AT THIS TIME. BED IS LOCKED, IN THE LOWEST POSITION, 2X SIDE RAILS UP, BED ALARM IS ON. CALL LIGHT WITHIN REACH. FALL AND SAFETY PRECAUTIONS MAINTAINED. ALL NEEDS HAVE BEEN MET DURING THIS SHIFT. ENDORSEMENT OF CARE WILL BE GIVEN TO ONCOMING NURSE.
--- NOTE | 2019-01-28 07:55 | NUR ---
OPENING NOTES RECEIVED PATIENT IN BED, RESTING COMFORTABLY, PT IS AAOX2. NO SOB, NO ACUTE DISTRESS, NO FEVER. NO COMPLAINTS OF PAIN AT THIS TIME. SALINE LOCK ON LEFT WRIST, INTACT AND PATENT. BED IS LOCKED, IN THE LOWEST POSITION, 2X SIDE RAILS UP, BED ALARM IS ON. CALL LIGHT WITHIN REACH. FALL AND SAFETY PRECAUTIONS MAINTAINED. WILL CONT TO MONITOR.
[2019-01-28] MEDS: BENZTROPINE MESYLATE 1 MG TABLET PO SCH ×2 (08:36→14:38)
[2019-01-28] MEDS: PANTOPRAZOLE SODIUM 40 MG TAB PO SCH (08:36)
[2019-01-28] MEDS: CLOPIDOGREL BISULFATE 75 MG TABLET PO SCH (08:36)
[2019-01-28] MEDS: TAMSULOSIN HCL 0.4 MG CAP PO SCH (08:36)
[2019-01-28] MEDS: FINASTERIDE 5 MG TABLET (PROSCAR) PO SCH (08:37)
[2019-01-28] MEDS: metroNIDAZOLE 500 mg/NS 100 ML IV SCH (08:37)
[2019-01-28] MEDS: CEFEPIME 1 GM in D5W 50 ML IV SCH (08:38)
--- NOTE | 2019-01-28 09:58 | NUR ---
PT IN BED, RESTING COMFORTABLY, SAFETY PRECAUTION IN PLACE.
[2019-01-28] MEDS: VITS A AND D/WHITE PET/LANOLIN 113.4 GM TUBE TP SCH (11:03)
--- NOTE | 2019-01-28 12:00 | NUR ---
PT IN BED, NO C/O PAIN, NO SOB, NO RESP DISTRESS. WILL CONT TO MONITOR.
--- NOTE | 2019-01-28 14:04 | NUR ---
SBAR REPORT GIVEN NURSE VEENA.
--- NOTE | 2019-01-28 14:22 | NUR ---
PT'S AT BEDSIDE GIVING PT BED BATH.
--- NOTE | 2019-01-28 14:48 | NUR ---
Discharge Planning: [facility] (f [phone] p [phone]) [address], [facility] ([phone]) 7:30pm P/U Auth#[id number]. Nurse made aware, patient packet taken to nurse station.
--- NOTE | 2019-01-28 16:16 | NUR ---
Nutrition F/U RD reviewed pt's current EMR including diet Hx, physician notes, nursing notes, pertinent labs/meds/procedures, care trends and care activity. Current Diet Order: pureed x2 days Subjective information: Pt was seen by ST for VFSS 01/26/19; ST rec for pureed diet w/ thin liquid, slow rate of feeding, and no straw. Per RN, pt ate nearly 100% of meal, and pt enjoys drinking fluids. Pt pending possible D/C back to SNF per RN report. Current PO intake: 86% average x5 meals Estimated Energy Expenditure (kcals/day) 6502-5072 kcal/day (30-35 kcal/kg CBW for sepsis, CA) Estimated Protein Required (g/day) 102-136 gm/day (1.5-2 gm/kg CBw for sepsis, CA) Estimated Fluid Required (l/day) 2-2.4 L/day (1 ml/kcal/day for maintenance) Problem/Etiology/Signs/Symptoms Increased nutritional needs related to metabolic demands as evidenced by estimated nutritional requirements for sepsis and CA, as well as elevated WBC lab value. *WBC now WNL Inadequate PO intake r/t pending medical procedure AEB current NPO status and need for swallow re-evaluation. *improved Expected Outcomes/Goals - Monitor advancement of diet, appetite, and PO intakes w/ goal of pt meeting at least 50% of estimated nutritional needs, labs trending WNL, normal GI function, and skin integrity/wt maintenance Dietitian Recommendations * Recommend continuing pureed diet (ONS Ensure Enlive TID comes standard w/ pureed diet; 1050 kcal/day, 60 gm protein/day) Follow Up High Risk: F/U in 2-3days Addendum: 01/28/19 at [address] CORRECTION: Follow Up Moderate Risk: F/U in 3-5 days
--- NOTE | 2019-01-28 16:21 | NUR ---
Dietitian Recommendations * Recommend continuing pureed diet (ONS Ensure Enlive TID comes standard w/ pureed diet; 1050 kcal/day, 60 gm protein/day) LP, RD Please refer to Nutrition F/U for details.
--- NOTE | 2019-01-28 16:42 | NUR ---
spoke with dr munoz re pt's low bp, made aware that pt is on midorine 5 mg daily, New orders given and carried out.
[2019-01-28] MEDS ORDERED: MIDODRINE HCL 5 MG TABLET (PROAMATINE) PO ONE (16:45)
--- NOTE | 2019-01-28 18:52 | NUR ---
CLOSING NOTES, PT BP WAS LOW AT AROUND 430 PM, DR LYNN MADE AWARE. PER MIDODRINE WAS GIVEN. LAST BP WAS > 90. DC PAPER WORKS DONE. WILL ENDORSE TO NIGHT RN.
--- NOTE | 2019-01-28 19:22 | NUR ---
[facility] called spoke to Karina, she said the crew is running late and they will be here at 2030.
--- NOTE | 2019-01-28 20:35 | NUR ---
D/C Patient D/C instructions given to . Exit Care provided. Patient's verbalized understanding. Discharged to [facility] with [facility]. Patient in stable condition, BP stable, ID band removed, tele box removed. Pt discharged with IV on L FA, patent and benign. All belongings sent with patient.
[2019-01-29] MEDS ORDERED: MIDODRINE HCL 5 MG TABLET (PROAMATINE) PO SCH (09:00)
== END 2019-01-28 20:45 | DRG 871 ==
LOC: SED 14:12 → STU 16:26 → SMU 01-25 14:33 → STU 01-27 22:50
PROVIDERS: ADMIT Internal Medicine; ATTEND Internal Medicine
DX: A41.9 Sepsis, unspecified organism (principal); J69.0 Pneumonitis due to inhalation of food and vomit; T83.511A Infection and inflammatory reaction due to indwelling urethral catheter, initial encounter; C49.9 Malignant neoplasm of connective and soft tissue, unspecified; E44.0 Moderate protein-calorie malnutrition; I69.354 Hemiplegia and hemiparesis following cerebral infarction affecting left non-dominant side; N39.0 Urinary tract infection, site not specified; D72.825 Bandemia; E78.5 Hyperlipidemia, unspecified; E87.6 Hypokalemia; C76.2 Malignant neoplasm of abdomen; G20 Parkinson's disease; I10 Essential (primary) hypertension; N40.1 Benign prostatic hyperplasia with lower urinary tract symptoms; R13.10 Dysphagia, unspecified; I95.9 Hypotension, unspecified; R54 Age-related physical debility; Z68.24 Body mass index [BMI] 24.0-24.9, adult; Z92.21 Personal history of antineoplastic chemotherapy; Z88.0 Allergy status to penicillin; Z88.8 Allergy status to other drugs, medicaments and biological substances; Z79.899 Other long term (current) drug therapy; Z79.51 Long term (current) use of inhaled steroids
CPT/HCPCS: 36415; 71045; 74230; 80048; 80053; 81000-TC; 83605; 83735-TC; 84443-TC; 84484; 85007; 85025; 85027; 85610-TC; 85730-TC; 87040-TC; 87086; 92610-GN; 92611-GN; 93005; 94640; 94760; 96365; 97110-GP; 97530-GP; 99285; G0378; J0692; J1956; J3480; J3490; J7050; J7060; J7613; J7620

== ENCOUNTER 2019-03-31 19:27 | Inpatient (IN) | payer OTHER, MEDICAID ==
[~2019-03-31] VITALS: Ht 167.6 cm; Wt 72.0 kg
[~2019-03-31 19:27] MED LIST: ACET325T53 PO; ALBU2.5V7 INH; BENZ0.5T43 PO; CALC1CAP22 PO; CARB1TAB10 PO; CLOP300T2 PO; FINA5TAB3 PO; LIP80 PO; MELA3TAB64 PO; ONDA4TAB5 PO; PEDI0.2517 PO; POLY17PO4 PO; TAMS-11 PO
[2019-03-31 19:48] VITALS: BP_SYST 107
[2019-03-31 20:06] LABS: BASOPHILS # (AUTO) 0.1 K/uL (0.0-0.2); EOSINOPHILS # (AUTO) 0.2 K/uL (0.0-0.4); HEMATOCRIT 36.1 % (36-54); HEMOGLOBIN 12.4 g/dL (14.0-18.0); LYMPHOCYTES # (AUTO) 1.7 K/uL (1.0-5.5); LYMPHOCYTES % (AUTO) 30.1 % (20.5-51.5); MEAN CORPUSCULAR HEMOGLOBIN 35 pg (27-31); MEAN CORPUSCULAR HGB CONC 34 % (32-36); MEAN CORPUSCULAR VOLUME 100 fL (79.0-98.0); MONOCYTES # (AUTO) 0.5 K/uL (0.0-1.0); MONOCYTES % (AUTO) 8.3 % (1.7-9.3); NEUTROPHILS # (AUTO) 3.1 K/uL (1.8-7.7); NEUTROPHILS % (AUTO) 56.6 % (40.0-70.0); PLATELET COUNT (AUTO) 143 K/uL (130-430); RED CELL DISTRIBUTION WIDTH 18.2 % (9.0-15.0); WHITE BLOOD COUNT (AUTO) 5.5 K/uL (4.8-10.8)
[2019-03-31 20:18] LABS: CALCIUM 8.7 mg/dL (8.4-11.0); CHLORIDE 101 mmol/L (98-107); CREATININE 0.81 mg/dL (0.55-1.30); GLUCOSE 106 mg/dL (70-99); POTASSIUM 3.4 mmol/L (3.5-5.1); SODIUM SERUM 134 mmol/L (136-145); UREA NITROGEN, BLOOD 13 mg/dL (8-21)
[2019-03-31 20:22] LABS: ANION GAP < 3 (5-15); GFR AFRICAN AMERICAN 123 mL/min (>90)
[2019-03-31 20:27] LABS: ALANINE AMINOTRANSFERASE 11 U/L (12-78); ALBUMIN 3.2 g/dL (3.4-4.8); ASPARTATE AMINOTRANSFERASE 21 U/L (10-37); TOTAL BILIRUBIN 1.1 mg/dL (0.0-1.0)
[2019-03-31] MEDS ORDERED: VANCOMYCIN HCL 1,000 MG in NS 250 ML IV ONE (21:45)
[2019-03-31] MEDS ORDERED: NACL 0.9% 1,000 ML IV ONE (22:00)
[2019-03-31 22:37] LABS: BILIRUBIN,URINE NEGATIVE (NEGATIVE); BLOOD, URINE 3+ (NEGATIVE); CLARITY/URINE OTHER (CLEAR); COLOR,URINE YELLOW (YELLOW); GLUCOSE,URINE NEGATIVE (NEGATIVE); KETONES,URINE NEGATIVE (NEGATIVE); LEUKOCYTE ESTERASE ,URINE 3+ (NEGATIVE); NITRITE, URINE NEGATIVE (NEGATIVE); PH,URINE 6.5 (5.0-8.0); PROTEIN URINE NEGATIVE (NEGATIVE); UROBILINOGEN,URINE 0.2 (0.2-1.0)
[2019-03-31] MEDS ORDERED: ROBAC PO (22:40)
[2019-03-31] MEDS ORDERED: VANCOMYCIN HCL 1000 MG/VIAL IV ONE (23:08)
[2019-03-31 23:15] LABS: BACTERIA,URINE MODERATE /HPF (None Seen); WBC,URINE 50-80 /HPF (0-3)
[2019-03-31] MEDS ORDERED: POLYETHYLENE GLYCOL 3350, 17 GM/ POWD.PACK PO PRN (23:15)
[2019-03-31] MEDS ORDERED: ALBUTEROL SULFATE 0.083% 2.5 MG/3 ML VIAL.NEB INH PRN (23:15)
[2019-03-31] MEDS ORDERED: ACETAMINOPHEN 325 MG TABLET PO PRN (23:15)
[2019-03-31] MEDS ORDERED: MELATONIN 3 MG TABLET PO PRN (23:15)
[2019-03-31] MEDS ORDERED: ONDANSETRON 4 MG ODT TAB PO PRN (23:15)
[2019-03-31] MEDS ORDERED: guaiFENesin 200 MG/CODEINE 20 MG/ 10 ML UDC PO PRN (23:15)
[2019-03-31 23:16] LABS: MUCUS,URINE None Seen /LPF (None Seen)
[2019-03-31] MEDS: D5LR 1,000 ML IV SCH (23:55)
[2019-04-01] MEDS ORDERED: KCL 20 mEq in 100 mL (PREMIX) 100 ML IV SCH
[2019-04-01 01:37] VITALS: BP_SYST 119
[2019-04-01 05:44] VITALS: BP_SYST 119
[2019-04-01 06:42] LABS: BASOPHILS % (AUTO) 0.7 % (0.0-2.0); EOSINOPHILS # (AUTO) 0.1 K/uL (0.0-0.4); EOSINOPHILS % (AUTO) 3.2 % (0.0-4.0); HEMATOCRIT 36.5 % (36-54); HEMOGLOBIN 12.4 g/dL (14.0-18.0); LYMPHOCYTES # (AUTO) 1.7 K/uL (1.0-5.5); MEAN CORPUSCULAR HEMOGLOBIN 34 pg (27-31); MEAN CORPUSCULAR HGB CONC 34 % (32-36); MEAN CORPUSCULAR VOLUME 100 fL (79.0-98.0); MONOCYTES # (AUTO) 0.3 K/uL (0.0-1.0); MONOCYTES % (AUTO) 6.9 % (1.7-9.3); NEUTROPHILS # (AUTO) 2.5 K/uL (1.8-7.7); NEUTROPHILS % (AUTO) 53.2 % (40.0-70.0); PLATELET COUNT (AUTO) 144 K/uL (130-430); RED BLOOD CELL COUNT(AUTO) 3.64 MIL/uL (4.2-6.2); RED CELL DISTRIBUTION WIDTH 18.4 % (9.0-15.0); WHITE BLOOD COUNT (AUTO) 4.6 K/uL (4.8-10.8)
[2019-04-01 07:31] LABS: CALCIUM 8.3 mg/dL (8.4-11.0); CREATININE 0.71 mg/dL (0.55-1.30); PHOSPHORUS 3.1 mg/dL (2.7-4.5); POTASSIUM 3.8 mmol/L (3.5-5.1); TOTAL BILIRUBIN 0.9 mg/dL (0.0-1.0)
[2019-04-01 08:25] VITALS: BP_SYST 106
[2019-04-01] MEDS: FINASTERIDE 5 MG TABLET (PROSCAR) PO SCH (09:00)
[2019-04-01] MEDS ORDERED: NON-FORMULARY MEDICATION (Benztropine Mesylate 0.5 MG) PO SCH (09:00)
[2019-04-01] MEDS ORDERED: NON-FORMULARY MEDICATION (Tamsulosin Hcl (Flomax) 0.4 MG) PO SCH (09:00)
[2019-04-01] MEDS: BENZTROPINE MESYLATE 1 MG TABLET PO SCH ×3 (09:00→20:47)
[2019-04-01] MEDS: CLOPIDOGREL BISULFATE 75 MG TABLET PO SCH (09:00)
[2019-04-01] MEDS: D5LR 1,000 ML IV SCH ×2 (09:57→20:47)
[2019-04-01 11:18] VITALS: BP_SYST 119
[2019-04-01] MEDS ORDERED: MULTIVITAMINS TAB 1 TABLET PO ONE (13:00)
[2019-04-01] MEDS ORDERED: CARBIDOPA/LEVODOPA 25/100 MG TABLET PO SCH (13:00)
[2019-04-01 15:15] VITALS: BP_SYST 127
[2019-04-01] MEDS: CARBIDOPA/LEVODOPA 25/250 MG TABLET PO SCH ×2 (15:40→18:13)
[2019-04-01] MEDS ORDERED: CARBIDOPA/LEVODOPA 25/250 MG TABLET PO SCH (17:00)
[2019-04-01 20:00] VITALS: BP_SYST 92
[2019-04-01] MEDS: CALCIUM CARBONATE/VITAMIN D3 1 TAB TABLET PO SCH (20:47)
[2019-04-01] MEDS ORDERED: TAMSULOSIN HCL 0.4 MG CAP PO SCH (21:00)
[2019-04-01] MEDS ORDERED: ENOXAPARIN SODIUM 40 MG/0.4 ML SYRINGE SUBCUT SCH ×2 (21:00)
[2019-04-01] MEDS ORDERED: ATORVASTATIN 20 MG TABLET PO SCH (21:00)
[2019-04-01] MEDS ORDERED: LEVOFLOXACIN 500 MG/D5W 100 ML IV SCH (23:00)
[2019-04-02] MEDS: CARBIDOPA/LEVODOPA 25/250 MG TABLET PO SCH ×3 (05:45→14:41)
[2019-04-02] MEDS: D5LR 1,000 ML IV SCH (05:46)
[2019-04-02 07:50] VITALS: BP_SYST 118
[2019-04-02] MEDS ORDERED: MULTIVITAMINS TAB 1 TABLET PO SCH (09:00)
[2019-04-02] MEDS: CLOPIDOGREL BISULFATE 75 MG TABLET PO SCH (09:03)
[2019-04-02] MEDS: BENZTROPINE MESYLATE 1 MG TABLET PO SCH ×2 (09:04→14:41)
[2019-04-02] MEDS: CALCIUM CARBONATE/VITAMIN D3 1 TAB TABLET PO SCH (09:04)
[2019-04-02] MEDS: FINASTERIDE 5 MG TABLET (PROSCAR) PO SCH (09:04)
[2019-04-02] MEDS ORDERED: LEVO250T58 PO (12:23)
[2019-04-02 12:42] VITALS: BP_SYST 97
[2019-04-02 17:22] VITALS: BP_SYST 107
[2019-04-02 18:10] VITALS: BP_SYST 144
== END 2019-04-02 19:00 | DRG 65 ==
LOC: SED 19:27 → STU 22:42 → SMU 04-01 13:57
PROVIDERS: ADMIT Internal Medicine; ATTEND Internal Medicine
DX: I63.9 Cerebral infarction, unspecified (principal); N39.0 Urinary tract infection, site not specified; I69.351 Hemiplegia and hemiparesis following cerebral infarction affecting right dominant side; E87.6 Hypokalemia; E78.00 Pure hypercholesterolemia, unspecified; G20 Parkinson's disease; J44.9 Chronic obstructive pulmonary disease, unspecified; N40.0 Benign prostatic hyperplasia without lower urinary tract symptoms; E78.5 Hyperlipidemia, unspecified; R53.1 Weakness; D63.8 Anemia in other chronic diseases classified elsewhere; Z79.899 Other long term (current) drug therapy; Z88.0 Allergy status to penicillin; Z88.8 Allergy status to other drugs, medicaments and biological substances; Z92.21 Personal history of antineoplastic chemotherapy
CPT/HCPCS: 36415; 70450-TC; 71045; 80053; 80061; 81000-TC; 82550-TC; 83605; 83735-TC; 83880; 84100-TC; 84484; 85025; 85379; 87040-TC; 87081; 87086; 92610-GN; 93005; 93306; 94760; 96365; 96367; 97116-GP; 97530-GP; 99285; G0378; J1650; J1956; J3370; J3480; J7120

== ENCOUNTER 2019-05-07 17:25 | Inpatient (IN) | payer OTHER, MEDICAID ==
[~2019-05-07] VITALS: Ht 170.2 cm; Wt 68.0 kg
[~2019-05-07 17:25] MED LIST changes: +LEVO250T58 PO; +ROBAC PO; -TAMS-11 PO
[2019-05-07 17:30] VITALS: BP_SYST 100
[2019-05-07] MEDS ORDERED: NACL 0.9% 1,000 ML IV ONE (18:00)
[2019-05-07 18:44] LABS: BASOPHILS % (AUTO) 0.5 % (0.0-2.0); EOSINOPHILS # (AUTO) 0.2 K/uL (0.0-0.4); EOSINOPHILS % (AUTO) 2.9 % (0.0-4.0); HEMATOCRIT 39.3 % (36-54); HEMOGLOBIN 13.3 g/dL (14.0-18.0); LYMPHOCYTES # (AUTO) 1.4 K/uL (1.0-5.5); LYMPHOCYTES % (AUTO) 25.3 % (20.5-51.5); MEAN CORPUSCULAR HEMOGLOBIN 34 pg (27-31); MEAN CORPUSCULAR HGB CONC 34 % (32-36); MEAN CORPUSCULAR VOLUME 101 fL (79.0-98.0); MONOCYTES # (AUTO) 0.3 K/uL (0.0-1.0); MONOCYTES % (AUTO) 5.2 % (1.7-9.3); NEUTROPHILS # (AUTO) 3.6 K/uL (1.8-7.7); NEUTROPHILS % (AUTO) 66.1 % (40.0-70.0); PLATELET COUNT (AUTO) 169 K/uL (130-430); RED CELL DISTRIBUTION WIDTH 13.9 % (9.0-15.0); WHITE BLOOD COUNT (AUTO) 5.4 K/uL (4.8-10.8)
[2019-05-07 19:06] LABS: CALCIUM 9.1 mg/dL (8.4-11.0); CREATININE 0.61 mg/dL (0.55-1.30); POTASSIUM 3.4 mmol/L (3.5-5.1)
[2019-05-07 19:12] LABS: ALBUMIN 3.2 g/dL (3.4-4.8); TOTAL BILIRUBIN 0.9 mg/dL (0.0-1.0)
[2019-05-07 19:41] LABS: INR 1.1 (0.80-1.20); PROTHROMBIN TIME 10.9 SECS (9.5-12.5)
[2019-05-07 20:14] LABS: BILIRUBIN,URINE NEGATIVE (NEGATIVE); BLOOD, URINE 1+ (NEGATIVE); CLARITY/URINE SLIGHTLY CLOUDY (CLEAR); COLOR,URINE YELLOW (YELLOW); GLUCOSE,URINE NEGATIVE (NEGATIVE); KETONES,URINE NEGATIVE (NEGATIVE); LEUKOCYTE ESTERASE ,URINE 3+ (NEGATIVE); NITRITE, URINE POSITIVE (NEGATIVE); PROTEIN URINE 1+ (NEGATIVE); UROBILINOGEN,URINE 0.2 (0.2-1.0)
[2019-05-07 21:05] LABS: BACTERIA,URINE MANY /HPF (None Seen); WBC,URINE >100 /HPF (0-3)
[2019-05-07 21:06] LABS: MUCUS,URINE None Seen /LPF (None Seen); URINE AMORPHOUS PHOSPHATES 3+ /HPF (None Seen)
[2019-05-07] MEDS ORDERED: cefTRIAXone 1 GM in D5W 50 ML IV ONE (22:45)
[2019-05-07] MEDS ORDERED: cefTRIAXone 1 GM VIAL ONE (23:07)
[2019-05-07] MEDS ORDERED: ONDANSETRON HCL 4 MG/2 ML VIAL IVP PRN (23:15)
[2019-05-07] MEDS ORDERED: LORazepam 2 MG/ML VIAL IVP PRN (23:15)
[2019-05-07] MEDS ORDERED: ACETAMINOPHEN 325 MG TABLET PO PRN (23:15)
[2019-05-07] MEDS ORDERED: POTASSIUM CHLORIDE 20 MEQ TAB.PRT.SR PO PRN (23:15)
[2019-05-07] MEDS ORDERED: MAGNESIUM SULFATE 50 ML IV PRN (23:15)
[2019-05-07] MEDS ORDERED: DOCUSATE SODIUM 100 MG CAPSULE PO PRN (23:15)
[2019-05-08 00:43] VITALS: BP_SYST 120
[2019-05-08 00:45] VITALS: BP_SYST 120
[2019-05-08] MEDS: D5NS 1,000 ML IV SCH ×3 (01:25→22:51)
[2019-05-08] MEDS: PANTOPRAZOLE SODIUM 40 MG/VIAL (PROTONIX) IVP SCH ×2 (01:25→09:21)
[2019-05-08 06:02] LABS: CALCIUM 8.7 mg/dL (8.4-11.0); CREATININE 0.57 mg/dL (0.55-1.30); POTASSIUM 3.6 mmol/L (3.5-5.1)
[2019-05-08 06:34] LABS: BASOPHILS % (AUTO) 0.1 % (0.0-2.0); EOSINOPHILS # (AUTO) 0.2 K/uL (0.0-0.4); EOSINOPHILS % (AUTO) 2.6 % (0.0-4.0); HEMATOCRIT 39.5 % (36-54); HEMOGLOBIN 13.3 g/dL (14.0-18.0); LYMPHOCYTES # (AUTO) 1.6 K/uL (1.0-5.5); LYMPHOCYTES % (AUTO) 27.1 % (20.5-51.5); MEAN CORPUSCULAR HEMOGLOBIN 34 pg (27-31); MEAN CORPUSCULAR HGB CONC 34 % (32-36); MEAN CORPUSCULAR VOLUME 101 fL (79.0-98.0); MONOCYTES # (AUTO) 0.3 K/uL (0.0-1.0); MONOCYTES % (AUTO) 4.9 % (1.7-9.3); NEUTROPHILS # (AUTO) 3.9 K/uL (1.8-7.7); NEUTROPHILS % (AUTO) 65.3 % (40.0-70.0); PLATELET COUNT (AUTO) 175 K/uL (130-430); RED CELL DISTRIBUTION WIDTH 14.1 % (9.0-15.0); WHITE BLOOD COUNT (AUTO) 5.9 K/uL (4.8-10.8)
[2019-05-08] MEDS: FINASTERIDE 5 MG TABLET (PROSCAR) PO SCH (09:22)
[2019-05-08] MEDS: CARBIDOPA/LEVODOPA 25/100 MG TABLET PO SCH ×4 (09:22→20:32)
[2019-05-08] MEDS: BENZTROPINE MESYLATE 1 MG TABLET PO SCH ×3 (09:23→20:32)
[2019-05-08 12:25] VITALS: BP_SYST 100; BP_SYST 125
[2019-05-08] MEDS: BISACODYL 5 MG TABLET.DR (DULCOLAX) PO ONE ×2 (15:53→16:03)
[2019-05-08 16:06] VITALS: BP_SYST 94
[2019-05-08 20:00] VITALS: BP_SYST 114
[2019-05-08] MEDS: cefTRIAXone 1 GM in D5W 50 ML IV SCH (22:46)
[2019-05-09 00:34] VITALS: BP_SYST 94
[2019-05-09] MEDS ORDERED: fentaNYL CITRATE/PF 100 MCG/2 ML AMP ONE (06:57)
[2019-05-09] MEDS ORDERED: MIDAZOLAM HCL 5 MG/5 ML VIAL ONE (06:57)
[2019-05-09] MEDS ORDERED: SIMETHICONE 40 MG/0.6 ML ML ONE (06:58)
[2019-05-09] MEDS ORDERED: SIMETHICONE 80 MG TAB.CHEW PO ONE (07:00)
[2019-05-09] MEDS ORDERED: MIDAZOLAM HCL 2 MG/2 ML VIAL (VERSED) IVP ONE (07:00)
[2019-05-09 08:00] VITALS: BP_SYST 114
[2019-05-09] MEDS: FINASTERIDE 5 MG TABLET (PROSCAR) PO SCH (09:00)
[2019-05-09] MEDS: CARBIDOPA/LEVODOPA 25/100 MG TABLET PO SCH ×4 (09:00→22:22)
[2019-05-09] MEDS: BENZTROPINE MESYLATE 1 MG TABLET PO SCH ×3 (09:00→22:23)
[2019-05-09] MEDS: PANTOPRAZOLE SODIUM 40 MG/VIAL (PROTONIX) IVP SCH (09:01)
[2019-05-09 09:56] LABS: CALCIUM 8.6 mg/dL (8.4-11.0); CREATININE 0.61 mg/dL (0.55-1.30); POTASSIUM 3.5 mmol/L (3.5-5.1)
[2019-05-09 09:58] LABS: INR 1.1 (0.80-1.20); PROTHROMBIN TIME 10.9 SECS (9.5-12.5)
[2019-05-09 10:01] LABS: BASOPHILS % (AUTO) 0.2 % (0.0-2.0); EOSINOPHILS # (AUTO) 0.1 K/uL (0.0-0.4); HEMATOCRIT 41.8 % (36-54); HEMOGLOBIN 14.1 g/dL (14.0-18.0); LYMPHOCYTES # (AUTO) 1.7 K/uL (1.0-5.5); LYMPHOCYTES % (AUTO) 20.4 % (20.5-51.5); MEAN CORPUSCULAR HEMOGLOBIN 34 pg (27-31); MEAN CORPUSCULAR HGB CONC 34 % (32-36); MEAN CORPUSCULAR VOLUME 101 fL (79.0-98.0); MONOCYTES # (AUTO) 0.3 K/uL (0.0-1.0); MONOCYTES % (AUTO) 3.4 % (1.7-9.3); NEUTROPHILS # (AUTO) 6.1 K/uL (1.8-7.7); PLATELET COUNT (AUTO) 155 K/uL (130-430); RED BLOOD CELL COUNT(AUTO) 4.14 MIL/uL (4.2-6.2); RED CELL DISTRIBUTION WIDTH 13.8 % (9.0-15.0); WHITE BLOOD COUNT (AUTO) 8.1 K/uL (4.8-10.8)
[2019-05-09 12:20] VITALS: BP_SYST 127
[2019-05-09] MEDS: D5NS 1,000 ML IV SCH (15:11)
[2019-05-09 16:20] VITALS: BP_SYST 123
[2019-05-09 20:00] VITALS: BP_SYST 104
[2019-05-09] MEDS: cefTRIAXone 1 GM in D5W 50 ML IV SCH (22:25)
[2019-05-09] MEDS: MUPIROCIN 2% TOPICAL OINTMENT 22 GM NS PRN (22:46)
[2019-05-10 00:50] VITALS: BP_SYST 107
[2019-05-10] MEDS: D5NS 1,000 ML IV SCH ×2 (02:47→20:42)
[2019-05-10 06:31] LABS: BASOPHILS % (AUTO) 0.4 % (0.0-2.0); EOSINOPHILS # (AUTO) 0.1 K/uL (0.0-0.4); EOSINOPHILS % (AUTO) 3.1 % (0.0-4.0); HEMATOCRIT 39.4 % (36-54); HEMOGLOBIN 13.1 g/dL (14.0-18.0); LYMPHOCYTES # (AUTO) 1.6 K/uL (1.0-5.5); LYMPHOCYTES % (AUTO) 34.6 % (20.5-51.5); MEAN CORPUSCULAR HEMOGLOBIN 34 pg (27-31); MEAN CORPUSCULAR HGB CONC 33 % (32-36); MEAN CORPUSCULAR VOLUME 101 fL (79.0-98.0); MONOCYTES # (AUTO) 0.3 K/uL (0.0-1.0); MONOCYTES % (AUTO) 6.6 % (1.7-9.3); NEUTROPHILS # (AUTO) 2.6 K/uL (1.8-7.7); NEUTROPHILS % (AUTO) 55.3 % (40.0-70.0); PLATELET COUNT (AUTO) 166 K/uL (130-430); RED BLOOD CELL COUNT(AUTO) 3.89 MIL/uL (4.2-6.2); RED CELL DISTRIBUTION WIDTH 13.5 % (9.0-15.0); WHITE BLOOD COUNT (AUTO) 4.8 K/uL (4.8-10.8)
[2019-05-10 06:48] LABS: CALCIUM 8.2 mg/dL (8.4-11.0); CREATININE 0.6 mg/dL (0.55-1.30); POTASSIUM 3.4 mmol/L (3.5-5.1)
[2019-05-10 08:00] VITALS: BP_SYST 131
[2019-05-10] MEDS: BENZTROPINE MESYLATE 1 MG TABLET PO SCH ×3 (09:21→20:22)
[2019-05-10] MEDS: PANTOPRAZOLE SODIUM 40 MG/VIAL (PROTONIX) IVP SCH (09:21)
[2019-05-10] MEDS: FINASTERIDE 5 MG TABLET (PROSCAR) PO SCH (09:21)
[2019-05-10] MEDS: CARBIDOPA/LEVODOPA 25/100 MG TABLET PO SCH ×4 (09:21→20:22)
[2019-05-10] MEDS: MUPIROCIN 2% TOPICAL OINTMENT 22 GM NS PRN ×2 (09:22→20:43)
[2019-05-10 14:01] VITALS: BP_SYST 126
[2019-05-10 16:00] VITALS: BP_SYST 132
[2019-05-10] MEDS ORDERED: BISACODYL 5 MG TABLET.DR (DULCOLAX) PO ONE (16:00)
[2019-05-10] MEDS ORDERED: GOLYTELY / COLYTE SOLUTION 4 LITERS PO ONE (17:00)
[2019-05-10] MEDS: ALBUTEROL SULFATE 0.083% 2.5 MG/3 ML VIAL.NEB INH PRN (17:11)
[2019-05-10] MEDS ORDERED: PIPERACILLIN/TAZO 3.375/DEX-IS 50 ML IV SCH (18:00)
[2019-05-10 20:00] VITALS: BP_SYST 117
[2019-05-11] VITALS: BP_SYST 128
[2019-05-11] MEDS ORDERED: cefTRIAXone 1 GM IVPB PREMIX 50 ML IV SCH
[2019-05-11 06:42] LABS: CREATININE 0.66 mg/dL (0.55-1.30)
[2019-05-11] MEDS ORDERED: MIDAZOLAM HCL 5 MG/5 ML VIAL ONE (06:47)
[2019-05-11] MEDS ORDERED: fentaNYL CITRATE/PF 100 MCG/2 ML AMP ONE (06:47)
[2019-05-11] MEDS ORDERED: SIMETHICONE 40 MG/0.6 ML ML ONE (06:48)
[2019-05-11 07:09] LABS: BASOPHILS % (AUTO) 0.2 % (0.0-2.0); EOSINOPHILS % (AUTO) 0.2 % (0.0-4.0); HEMATOCRIT 39.7 % (36-54); HEMOGLOBIN 13.5 g/dL (14.0-18.0); LYMPHOCYTES # (AUTO) 1.3 K/uL (1.0-5.5); LYMPHOCYTES % (AUTO) 11.5 % (20.5-51.5); MEAN CORPUSCULAR HEMOGLOBIN 34 pg (27-31); MEAN CORPUSCULAR HGB CONC 34 % (32-36); MEAN CORPUSCULAR VOLUME 101 fL (79.0-98.0); MONOCYTES # (AUTO) 0.5 K/uL (0.0-1.0); MONOCYTES % (AUTO) 4.9 % (1.7-9.3); NEUTROPHILS # (AUTO) 9.1 K/uL (1.8-7.7); NEUTROPHILS % (AUTO) 83.2 % (40.0-70.0); PLATELET COUNT (AUTO) 176 K/uL (130-430); RED BLOOD CELL COUNT(AUTO) 3.93 MIL/uL (4.2-6.2); RED CELL DISTRIBUTION WIDTH 13.7 % (9.0-15.0)
[2019-05-11 07:41] LABS: WHITE BLOOD COUNT (AUTO) 10.9 K/uL (4.8-10.8)
[2019-05-11 10:26] VITALS: BP_SYST 132
[2019-05-11] MEDS: CARBIDOPA/LEVODOPA 25/100 MG TABLET PO SCH ×4 (10:26→21:32)
[2019-05-11] MEDS: FINASTERIDE 5 MG TABLET (PROSCAR) PO SCH (10:26)
[2019-05-11] MEDS: BENZTROPINE MESYLATE 1 MG TABLET PO SCH ×3 (10:26→21:32)
[2019-05-11] MEDS: PANTOPRAZOLE SODIUM 40 MG/VIAL (PROTONIX) IVP SCH (10:47)
[2019-05-11 12:31] VITALS: BP_SYST 131
[2019-05-11] MEDS ORDERED: POTASSIUM CHLORIDE 40 MEQ, LIDOCAINE JECT 2% PF 100 MG 75 MG in NS 250 ML IV ONE (15:00)
[2019-05-11] MEDS: D5NS 1,000 ML IV SCH (16:02)
[2019-05-11 16:13] VITALS: BP_SYST 108
[2019-05-11 18:14] VITALS: BP_SYST 108
[2019-05-11] MEDS: ALBUTEROL SULFATE 0.083% 2.5 MG/3 ML VIAL.NEB INH PRN (18:51)
[2019-05-11] MEDS: CEFEPIME 1 GM in D5W 50 ML IV SCH (21:32)
[2019-05-12 00:13] VITALS: BP_SYST 110
[2019-05-12] MEDS: D5NS 1,000 ML IV SCH (04:19)
[2019-05-12 06:22] LABS: BASOPHILS % (AUTO) 0.6 % (0.0-2.0); EOSINOPHILS # (AUTO) 0.2 K/uL (0.0-0.4); EOSINOPHILS % (AUTO) 2.2 % (0.0-4.0); HEMATOCRIT 33.8 % (36-54); HEMOGLOBIN 11.8 g/dL (14.0-18.0); LYMPHOCYTES # (AUTO) 1.3 K/uL (1.0-5.5); LYMPHOCYTES % (AUTO) 16.1 % (20.5-51.5); MEAN CORPUSCULAR HEMOGLOBIN 35 pg (27-31); MEAN CORPUSCULAR HGB CONC 35 % (32-36); MEAN CORPUSCULAR VOLUME 100 fL (79.0-98.0); MONOCYTES # (AUTO) 0.5 K/uL (0.0-1.0); MONOCYTES % (AUTO) 6.1 % (1.7-9.3); PLATELET COUNT (AUTO) 158 K/uL (130-430); RED BLOOD CELL COUNT(AUTO) 3.38 MIL/uL (4.2-6.2); RED CELL DISTRIBUTION WIDTH 13.6 % (9.0-15.0)
[2019-05-12 06:36] LABS: CALCIUM 7.9 mg/dL (8.4-11.0); CREATININE 0.55 mg/dL (0.55-1.30); POTASSIUM 3.1 mmol/L (3.5-5.1)
[2019-05-12 08:00] VITALS: BP_SYST 117
[2019-05-12] MEDS: CEFEPIME 1 GM in D5W 50 ML IV SCH (08:38)
[2019-05-12] MEDS: PANTOPRAZOLE SODIUM 40 MG/VIAL (PROTONIX) IVP SCH (08:42)
[2019-05-12] MEDS: BENZTROPINE MESYLATE 1 MG TABLET PO SCH ×3 (08:43→20:12)
[2019-05-12] MEDS: CARBIDOPA/LEVODOPA 25/100 MG TABLET PO SCH ×4 (08:43→20:12)
[2019-05-12] MEDS: FINASTERIDE 5 MG TABLET (PROSCAR) PO SCH (08:43)
[2019-05-12] MEDS: ALBUTEROL SULFATE 0.083% 2.5 MG/3 ML VIAL.NEB INH PRN (10:40)
[2019-05-12] MEDS ORDERED: MUPIROCIN 2% TOPICAL OINTMENT 22 GM NS SCH (11:32)
[2019-05-12 12:00] VITALS: BP_SYST 143
[2019-05-12 16:07] VITALS: BP_SYST 139
[2019-05-12 16:27] VITALS: BP_SYST 139
== END 2019-05-12 20:40 | DRG 377 ==
LOC: SED 17:25 → SMU 22:34
PROVIDERS: ADMIT General Practice; ATTEND General Practice
PROC: 0DJD8ZZ Inspection of Lower Intestinal Tract, Via Natural or Artificial Opening Endoscopic (ICD-10-PCS; principal; 2019-05-09 07:30)
PROC: 0DJD8ZZ Inspection of Lower Intestinal Tract, Via Natural or Artificial Opening Endoscopic (ICD-10-PCS; 2019-05-11)
DX: K92.2 Gastrointestinal hemorrhage, unspecified (principal); R40.2224 Coma scale, best verbal response, incomprehensible words, 24 hours or more after hospital admission; N39.0 Urinary tract infection, site not specified; I69.354 Hemiplegia and hemiparesis following cerebral infarction affecting left non-dominant side; I69.351 Hemiplegia and hemiparesis following cerebral infarction affecting right dominant side; C44.509 Unspecified malignant neoplasm of skin of other part of trunk; E87.6 Hypokalemia; Z66 Do not resuscitate; B96.4 Proteus (mirabilis) (morganii) as the cause of diseases classified elsewhere; B96.5 Pseudomonas (aeruginosa) (mallei) (pseudomallei) as the cause of diseases classified elsewhere; G20 Parkinson's disease; I10 Essential (primary) hypertension; J44.9 Chronic obstructive pulmonary disease, unspecified; K56.41 Fecal impaction; K40.90 Unilateral inguinal hernia, without obstruction or gangrene, not specified as recurrent; K64.8 Other hemorrhoids; N40.0 Benign prostatic hyperplasia without lower urinary tract symptoms; Z22.322 Carrier or suspected carrier of Methicillin resistant Staphylococcus aureus; Z79.02 Long term (current) use of antithrombotics/antiplatelets; Z88.0 Allergy status to penicillin; Z92.21 Personal history of antineoplastic chemotherapy; Z88.6 Allergy status to analgesic agent; Z79.899 Other long term (current) drug therapy
CPT/HCPCS: 36415; 71045; 80048; 80053; 81000-TC; 83036; 83605; 83735-TC; 84484; 85025; 85610-TC; 85730-TC; 87040-TC; 87081; 87086; 87186-TC; 93005; 94640; 96361; 96365; 99285; C9113; G0104; J0692; J0696; J2250; J3010; J3465; J3475; J3480; J7030; J7042; J7050; J7060; J7613